=== PATIENT | male | born 1980 | race Caucasian/White ===

== ENCOUNTER → 2016-12-06 | Outpatient (CLI) | payer BC ==
--- NOTE | 2016-12-06 13:15 | KCIC ---
Bilateral 3 view hand HISTORY: Polyarthralgia. History of arthritis for 7 years. COMPARISON: Not available FINDINGS: No evidence of acute fracture or dislocation. Joint spaces and alignment are intact. No evidence of bone destruction. IMPRESSION: No radiographic abnormality identified at either hand. Electronically signed by: Isaiah Abel MD (12/06/2016 1:13 PM) [id number]
== END | disposition home or self-care (01) ==
LOC: KCIC 12:06
PROVIDERS: ATTEND Internal Medicine Rheumatology
DX: M25.542 Pain in joints of left hand (principal); M25.541 Pain in joints of right hand
CPT/HCPCS: 73130